=== PATIENT | female | born 1970 | race Hispanic/Latino ===

== ENCOUNTER 2021-11-04 15:54 | Outpatient (CLI) | payer SELFPAY | END 2021-11-04 15:55 | disposition home or self-care (01) | LOC: MADRAD 15:54 | PROVIDERS: ATTEND Family Medicine | DX: U07.1 COVID-19 (principal); J10.1 Influenza due to other identified influenza virus with other respiratory manifestations; J98.4 Other disorders of lung | CPT/HCPCS: 71046 ==

== ENCOUNTER 2021-11-07 18:10 | Emergency (ER) | payer SELFPAY ==
[2021-11-07] MEDS ORDERED: cefTRIAXone\\ROCEPHIN 1 GM VIAL ONE (18:58)
[2021-11-07] MEDS ORDERED: Lidocaine 1% (PF) 30 ML VIAL ONE (18:58)
[2021-11-07] MEDS ORDERED: Sterile Water 10 ML ONE (18:59)
== END 2021-11-07 19:25 | disposition home or self-care (01) ==
LOC: MADERS 18:10
DX: U07.1 COVID-19 (principal); J12.82 Pneumonia due to coronavirus disease 2019; J11.00 Influenza due to unidentified influenza virus with unspecified type of pneumonia
CPT/HCPCS: 96372; 99284; J0696; J1040; J2001